=== PATIENT | male | born 1990 | race Caucasian/White ===

== ENCOUNTER → 2017-01-17 | Outpatient (CLI) | payer BC ==
[~2017-01-17] MED LIST: ADDERALL XR 10M10 MG PO; LEVAQUIN 750MG750 M1 PO; PYRIDIUM 100MG100 MG PO
[2017-01-17 19:20] LABS: AMPHETAMINE URINE NEGATIVE; BARBITURATES URINE NEGATIVE; BENZODIAZEPINES URINE NEGATIVE; BUPRENORPHINE URINE NEGATIVE; METHADONE URINE NEGATIVE; OPIATES URINE NEGATIVE; OXYCODONE URINE NEGATIVE; PHENCYCLIDINE URINE NEGATIVE; PROPOXYPHENE URINE NEGATIVE; THC CANNABINOIDS URINE NEGATIVE
== END ==
LOC: COL.LAB 18:32
PROVIDERS: Counselor
DX: Z79.899 Other long term (current) drug therapy (principal); Z13.89 Encounter for screening for other disorder